=== PATIENT | female | born 1965 | race Caucasian/White ===

== ENCOUNTER 2017-12-11 16:01 | Observation (INO) | payer OTHER ==
[~2017-12-11] VITALS: Ht 167.6 cm; Wt 72.0 kg
[~2017-12-11 16:01] MED LIST: DOXYCYCL HYC100 MG PO; NAPROSYN500 MG PO; TOPAMAX100 MG PO; XANAX0.25 MG PO
[2017-12-11] MEDS ORDERED: KLONOPIN1 MG PO (16:31)
[2017-12-11] MEDS ORDERED: TOPAMAX200 MG PO (16:31)
[2017-12-11] MEDS ORDERED: VYVANSE10 MG (16:32)
[2017-12-11 18:48] VITALS: BP 139/81
[2017-12-12 04:48] VITALS: BP 111/69
[2017-12-12 07:59] VITALS: BP 132/50
[2017-12-12 10:21] LABS: CHOLESTEROL HDL RATIO 4.8 (<4.4 (CALC))
[2017-12-12 15:20] VITALS: BP 142/71
[2017-12-12 17:37] VITALS: BP 138/66
[2017-12-12 20:05] VITALS: BP 127/72
[2017-12-13 03:45] VITALS: BP 120/61
[2017-12-13 09:13] VITALS: BP 122/46
[2017-12-13 10:06] LABS: HEMATOCRIT 40.2 % (37.0-47.0); HEMOGLOBIN 13.4 g/dl (12.0-16.0)
[2017-12-13] MEDS ORDERED: OMEPRAZOLE20 M2 PO (14:18)
[2017-12-13] MEDS ORDERED: CARAFATE PO (14:24)
== END 2017-12-13 12:40 | disposition home or self-care (01) | DRG 882 ==
LOC: ED 16:01 → ED-I 17:45 → ED 18:01 → MS2 18:02
PROVIDERS: Nurse Practitioner Family; ADMIT Internal Medicine; ATTEND Internal Medicine
PROC: 0DB78ZX Excision of Stomach, Pylorus, Via Natural or Artificial Opening Endoscopic, Diagnostic (ICD-10-PCS; principal; 2017-12-12)
DX: F45.8 Other somatoform disorders (principal); B96.81 Helicobacter pylori [H. pylori] as the cause of diseases classified elsewhere; K29.50 Unspecified chronic gastritis without bleeding; D13.0 Benign neoplasm of esophagus; F32.9 Major depressive disorder, single episode, unspecified; F43.10 Post-traumatic stress disorder, unspecified; F41.9 Anxiety disorder, unspecified; F17.210 Nicotine dependence, cigarettes, uncomplicated; R01.1 Cardiac murmur, unspecified
CPT/HCPCS: G0378; J1610

== ENCOUNTER 2018-04-13 11:54 | Emergency (ER) | payer OTHER ==
[~2018-04-13] VITALS: Ht 167.6 cm; Wt 80.0 kg
[~2018-04-13 11:54] MED LIST changes: +CARAFATE PO; +KLONOPIN1 MG PO; +OMEPRAZOLE20 M2 PO; +TOPAMAX200 MG PO; +VYVANSE10 MG
[2018-04-13] MEDS ORDERED: WELLBUTRIN SR150 MG PO (12:15)
[2018-04-13 13:08] LABS: HEMATOCRIT 40.4 % (37.0-47.0); HEMOGLOBIN 13.7 g/dl (12.0-16.0); IMMATURE GRANULOCYTES 0.4 % (0.0-1.0); MEAN CORPUSCULAR HGB 31.2 pG CALC (26.0-32.0); MEAN CORPUSCULAR HGB CONC 33.9 g/L CALC (32.0-36.0); NEUT# 6.58 thou/uL (2.00-7.15); RED BLOOD COUNT 4.39 mill/uL (4.20-5.60); RED CELL DISTRI WIDTH 13.8 % (11.5-15.5)
[2018-04-13 13:18] VITALS: BP 160/80
[2018-04-13 13:23] LABS: ALBUMIN 4.6 g/dL (3.2-5.0); ALKALINE PHOSPHATASE 79 u/l (38-126); ANION GAP 15 (6-22 (CALC)); BILIRUBIN, TOTAL 0.4 mg/dL (0.0-1.4); BUN 22 mg/dL (7-17); BUN/CREATININE RATIO 31 (12-20 (CALC)); CARBON DIOXIDE 20 mmol/l (22-30); CHLORIDE 109 mmol/l (95-108); CREATININE 0.7 mg/dL (0.5-1.0); GFR > 60 ML/MIN (>=60 (CALC)); GFR FOR AFR.AMER. > 60 ML/MIN (>=60 (CALC)); POTASSIUM 4.2 mmol/l (3.5-5.1); SGPT/ALT 34 u/l (9-52); SODIUM 140 mmol/l (137-146)
[2018-04-13 13:25] LABS: SGOT/AST 35 u/l (14-36)
[2018-04-13 13:34] LABS: MYOGLOBIN 161 ng/mL (0 - 62)
== END 2018-04-13 13:10 | disposition short-term general hospital (02) | DRG 282 ==
LOC: ED 11:54
PROVIDERS: Family Medicine
DX: I21.09 ST elevation (STEMI) myocardial infarction involving other coronary artery of anterior wall (principal); R11.0 Nausea; F17.200 Nicotine dependence, unspecified, uncomplicated